=== PATIENT | female | born 1965 | race Caucasian/White ===

== ENCOUNTER → 2018-01-15 | Outpatient (CLI) | payer OTHER | LOC: M.RAD 10:10 | DX: Z12.31 Encounter for screening mammogram for malignant neoplasm of breast (principal) ==

== ENCOUNTER 2019-04-01 20:42 | Emergency (ER) | payer OTHER ==
[~2019-04-01] VITALS: Ht 172.7 cm; Wt 72.6 kg
[2019-04-01] MEDS ORDERED: MULTI VITAMIN1 EACH PO (20:56)
[2019-04-01] MEDS ORDERED: KEFLEX500 M1 PO (21:44)
[2019-04-01] MEDS ORDERED: NORCO 5-325 TA1 EAC1 PO (21:44)
[2019-04-01 22:15] VITALS: BP 160/94
== END 2019-04-01 22:16 | disposition home or self-care (01) ==
LOC: M.ERS 20:42
DX: S02.2XXA Fracture of nasal bones, initial encounter for closed fracture (principal); S60.511A Abrasion of right hand, initial encounter; M25.572 Pain in left ankle and joints of left foot; R04.0 Epistaxis; K64.9 Unspecified hemorrhoids; Z79.899 Other long term (current) drug therapy; Z90.89 Acquired absence of other organs; W18.39XA Other fall on same level, initial encounter; Y93.89 Activity, other specified; Y92.89 Other specified places as the place of occurrence of the external cause; Y99.8 Other external cause status

== ENCOUNTER → 2019-04-08 | Outpatient (CLI) | payer OTHER ==
[~2019-04-08] MED LIST: KEFLEX500 M1 PO; MULTI VITAMIN1 EACH PO; NORCO 5-325 TA1 EAC1 PO
== END ==
LOC: M.RAD 10:39
DX: Z12.31 Encounter for screening mammogram for malignant neoplasm of breast (principal)

== ENCOUNTER → 2019-09-15 | Outpatient (CLI) | payer OTHER ==
[2019-09-15 10:09] LABS: ABSOLUTE BASOPHILS 0.1 thou/uL (0.0-0.2); ABSOLUTE EOSINOPHILS 0.1 thou/uL (0.0-0.7); ABSOLUTE LYMPHOCYTES 2.4 thou/uL (0.8-5.3); ABSOLUTE MONOCYTES 0.4 thou/uL (0.0-1.2); ABSOLUTE NEUTROPHILS 2.3 thou/uL (1.6-8.1); EOSINOPHILS 2.9 %; HEMATOCRIT 41.5 % (37.0-47.0); HEMOGLOBIN 14.7 gm/dL (12.0-15.0); LYMPHOCYTES 45.5 %; MCH 32.7 pg (26.0-34.0); MCHC 35.3 g/dL (28.0-37.0); MCV 92.5 fL (80.0-100.0); MONOCYTES 6.9 %; MPV 7.3 fl. (7.2-11.1); NUCLEATED RBCS 0 /100WBC; PLATELET COUNT* 244 thou/uL (150-400); POLYS 43.7 %; RBC 4.49 mil/uL (4.20-5.00); RDW-CV 12.6 % (10.5-14.5); WBC 5.2 thou/uL (4.0-11.0)
[2019-09-15 10:24] LABS: ALBUMIN 4.1 g/dL (3.4-5.0); ALKALINE PHOSPHATASE 90 U/L (46-116); ANION GAP 6 mmol/L (7-16); BUN 17 mg/dL (7-18); CALCIUM 8.1 mg/dL (8.5-10.1); CHLORIDE 104 mmol/L (98-107); CHOLESTEROL 224 mg/dL (<200); CO2 30 mmol/L (21-32); GLUCOSE 85 mg/dL (70-99); HDL CHOLESTEROL 65 mg/dL (>40); LDL CHOLESTEROL 149 mg/dL (<100); POTASSIUM 3.2 mmol/L (3.5-5.1); SGOT 28 U/L (15-37); SGPT 34 U/L (30-65); SODIUM 140 mmol/L (136-145); TC:HDL 3.4 Ratio (Not establshd); TOTAL BILIRUBIN 0.7 mg/dL (<0.1-1.0); TOTAL PROTEIN 7.2 g/dL (6.4-8.2); TRIGLYCERIDE 53 mg/dL (<150); VLDL 11 mg/dL (<40)
[2019-09-15 10:26] LABS: SERUM ASSESSMENT Clear
== END ==
LOC: M.LAB 09:51
PROVIDERS: Family Medicine
DX: Z01.419 Encounter for gynecological examination (general) (routine) without abnormal findings (principal); Z78.0 Asymptomatic menopausal state